=== PATIENT | female | born 1945 | race Caucasian/White ===

== ENCOUNTER 2024-11-02 08:56 | Emergency (ER) | payer MEDICARE, SELFPAY ==
[2024-11-02] VITALS (7 sets, daily range): BP systolic 83–123; BP diastolic 58–81; PULSE 78–93; RESP 16–22; TEMP 36.5–37.1; O2SAT 92–97; BMI 32.9
--- NOTE | 2024-11-02 09:12 | EKG_ITS ---
[facility] Test Date: 2024-11-02 Pat Name: TOBIAS CANELA Department: Room: - Gender: Female [employer]: : 1945 Requested By: Manjit Ward Order Number: [id number] Reading MD: Manjit Ward Measurements Intervals [place] Rate: 77 P: 61 TN: 155 QRS: -18 QRSD: 93 T: 42 QT: 434 QTc: 492 Interpretive Statements ELECTRONIC ATRIAL PACEMAKER MODERATE VOLTAGE CRITERIA FOR LVH, CONSIDER NORMAL VARIANT [MEETS CRITERIA IN ONE OF: R(aVL), S(V1), R(V5), R(V5/V6)+S(V1)] ABNORMAL RHYTHM ECG No previous ECG available for comparison /store/S0/[id number]/ecg/[id number].pdf
--- NOTE | 2024-11-02 09:12 | PD.EDSYNC ---
ED Syncope RME/HPI General Chief Complaint: Syncope / Near Syncope Stated Complaint: SYNCOPE Time Seen by Provider: 11/02/24 09:10 Arrival date/time: 11/02/24 08:56 RME / HPI RME / HPI narrative: 79 year old female with history of postpolio syndrome, COPD, hypothyroidsim, hyperlipidemia, osteoporosis presents to the ED [facility] from [facility] for syncopal episode today. Per medics, patient was found unresponsive in wheelchair and noted to be hypotensive. En route to ED patients blood pressure remained stable. While in the ED patient complains of feeling tired. Patient additionally reports she is having 4-5 bowel movements a day which she reports is normal for her. Denies fevers, chills, chest pain, cough, shortness of breath, abdominal pain, n/v, or urinary symptoms. Related Data Previous Rx's ?Medication ?Instructions ?Recorded levofloxacin 500 mg tablet 500 mg PO QDAY uti #7 tabs 11/02/24 Allergies Allergy/AdvReac Type Severity Reaction Status Date / Time acetaminophen [From Ultracet] Allergy Verified 04/14/24 12:02 bupropion [From Wellbutrin] Allergy Verified 04/14/24 12:02 celecoxib [From Celebrex] Allergy Verified 04/14/24 12:02 cephalexin Allergy Verified 04/14/24 12:02 doxycycline Allergy Verified 04/14/24 12:02 fexofenadine [From Yesenia] Allergy Verified 04/14/24 12:02 gabapentin [From Neurontin] Allergy Verified 04/14/24 12:02 gemfibrozil Allergy Verified 04/14/24 12:02 lactose Allergy Verified 04/14/24 12:04 methadone Allergy Verified 04/14/24 12:02 methocarbamol Allergy Verified 04/14/24 12:02 Penicillins Allergy Verified 04/14/24 12:02 rofecoxib [From Vioxx] Allergy Verified 04/14/24 12:02 sertraline [From Zoloft] Allergy Verified 04/14/24 12:02 sumatriptan [From Imitrex] Allergy Verified 04/14/24 12:02 tramadol Allergy Verified 04/14/24 12:02 valdecoxib [From Bextra] Allergy Verified 04/14/24 12:02 Review of Systems Review of Systems Narrative Review of Systems: Gen: No fever, no chills, no weight loss, +fatigue EYES: No discharge, no visual changes, no pain HEENT: No ear pain, no congestion, no sore throat PULM: no shortness of breath, no cough, no congestion CV: No chest pain, no dyspnea on exertion, no palpitations, no chest tightness GI: No nausea, no vomiting, +4-5 bowel movements/day, no pain, no constipation : No frequency, no urgency,? no dysuria Musc/skel: No joint pain, no back pain Skin: No rash, no ecchymosis, no lesions Neuro: No weakness, no headache Past Medical History Past Medical History CARDIAC: Positive Cardiac Disorders and Hypercholesterolemia RESPIRATORY: Positive Chronic Obstructive Pulmonary Disease (COPD) MUSCULOSKELETAL: Positive Osteoporosis and Poliovirus ENDOCRINE: Positive Hypothyroidism PSYCHO/SOCIAL: Positive Depression Social History SMOKING STATUS: Never smoker ED Exam Narrative Physical exam: GENERAL APPEARANCE: Lethargic, fatigued, nontoxic appearing HEENT: NC, AT. Dry MM. EOMI, clear conjunctiva, oropharynx clear. NECK: Supple without lymphadenopathy. No stiffness or restricted ROM. HEART: Normal rate and regular rhythm, normal S1/S1, no m/r/g LUNGS: CTAB, moving air well. No crackles or wheezes are heard. ABDOMEN: Soft, nontender, nondistended with good bowel sounds heard. BACK: No midline C/T/L spine pain or deformity, No CVAT, no obvious deformity. EXTREMITIES: Without cyanosis, clubbing or edema. MUSCULOSKELETAL: FROM of all major joints, no chest tenderness NEUROLOGICAL: Grossly nonfocal. Lethargic, fatigued, moving all 4 extremities. CN not formally tested but appear grossly intact. Skin: Warm and dry without any rash. Course Quality Measures none Orders Category Date Time Status Bedside COVID-19 Antigen Test NOW Care 11/02/24 09:12 Active Bedside Influenza A&B Antigen Test NOW Care 11/02/24 09:12 Completed EKG (ED ONLY) *Do not use* NOW Care 11/02/24 09:12 Completed In and Out Catheter X1 Care 11/02/24 09:[address] chest abdomen pelvis wo Stat Exams 11/02/24 12:01 Completed EKG (ED Only) Stat Exams 11/02/24 09:12 Draft XR chest 1V Stat Exams 11/02/24 09:12 Completed CBC Stat Lab 11/02/24 09:42 Completed CMP [Comprehensive Metabolic Panel] Stat Lab 11/02/24 09:42 Completed Lactate (Lactic Acid) Stat Lab 11/02/24 09:42 Completed Procalcitonin Stat Lab 11/02/24 09:42 Completed RSV [Respiratory Syncytial Virus Ag] Stat Lab 11/02/24 09:13 Ordered Troponin I Stat Lab 11/02/24 09:42 Completed Troponin I Stat Lab 11/02/24 12:46 Completed Urinalysis Stat Lab 11/02/24 12:10 Completed Levofloxacin/D5w 500 mg Ivpb [Levaquin Ivpb] Med 11/02/24 13:02 Discontinued 500 mg in 100 ml IV X1 Sodium Chloride 0.9% 1000 ml [Ns] 1,000 ml Med 11/02/24 09:12 Discontinued IV 999 mls/hr Sodium Chloride 0.9% 500 ml [Ns] 500 ml Med 11/02/24 10:29 Discontinued IV 999 mls/hr Vital Signs Vital signs: Vital Signs Pulse Rate 81 11/02/24 09:12 Respiratory Rate 21 H 11/02/24 09:12 Blood Pressure 83/58 L 11/02/24 09:12 Pulse Oximetry (%) 96 11/02/24 09:12 Oxygen Delivery Method Room Air 11/02/24 09:12 Pulse ox is 96% on room air which is adequate. Syncope MDM Narrative MDM Narrative:: Ms. Palmer is a clinically nontoxic-appearing female who presents to the emergency department with weakness and syncope with exam consistent with significantly dry mucous membranes and dehydration. She was hydrated in the emergency department with improvement of blood pressure and symptomatically improved to baseline. Laboratory testing send shows a mild ELEAZAR with creatinine 2.0 which which should respond well to the fluids she was given here in the emergency department. Remainder laboratory testing was unremarkable. Patient states she has a chronic history of low blood pressure, and she did in fact present initially with low blood pressure, however it did seem to normalize with IV fluids. I am not certain she truly lives with chronically low blood pressure as it is normal now. For possible full sources of infection given her mild kidney injury, noncontrast CT scan of the chest was done which shows no acute findings on my interpretation but does note a mild left pleural effusion with some compressive atelectasis. Patient does not have any shortness of breath or cough noted here. I reviewed the radiology interpretation and feel this is not consistent with a pneumonia. She does have a UTI which could be triggering her dehydration, and therefore was started on antibiotics, Levaquin which should also cover pulmonary functions as well. Otherwise for syncope, she had no significant events on telemetry here in the emergency department, she remained paced. EKG shows no signs of acute ischemia and troponin x 2 was negative. As she is clinically well-appearing, stable vital signs, and overall negative workup she is appropriate for outpatient treatment and follow-up. Nneka Edwards am scribing for and in the presence of Dr. Ward. Patient data External records reviewed:: [facility] previous records (I reviewed ED visit on 04/14/2024), EMS form and Alf records (I reviewed [place] txfer ppw from [facility]. I reviewed POLST, pmhx, and medication list. ) Clinical information provided by:: patient and EMS Social determinants that could affect healthcare access:: housing ([place] resident ) Patient has the following chronic illnesses:: postpolio syndrome, COPD, hypothyroidsim, hyperlipidemia, osteoporosis How is presenting disease/condition affected by chronic disease/condition?: exacerbated by Evaluation data The following diagnostics were reviewed and interpreted by me:: lab results, radiology exam(s) and EKG tracing(s) (Atrially paced, rate 77, no acute ST or T-wave changes, no STEMI.) Lab and/or radiology exams considered but not ordered:: None Interpretation Summary: Ordering Physician: Manjit Ward MD Date of Service: 11/02/24 Procedure(s): XR chest 1V Accession Number(s): [id number] cc: Manjit Ward MD; Milad Randall MD; NO PRIMARY/FAMILY,PHYSICIAN~ Examination: AP chest single view Technique one AP portable semiupright chest single view Exam date and time: November 02, 2024 0918 hours INDICATIONS: Shortness of breath today FINDINGS: Mild opacity left base obscuring detail left hemidiaphragm Normal heart size Mild vascular congestion Right internal jugular central line tip right atrium Cardiac leads satisfactory position IMPRESSION: Left base pneumonia Dictated By:Milad Randall MD Signed By:<Electronically signed by Milad Randall MD in OV>11/02/24 0938 Ordering Physician: Manjit Ward MD Date of Service: 11/02/24 Procedure(s): CT chest abdomen pelvis wo Accession Number(s): [id number] cc: Manjit Ward MD; Milad Randall MD; NO PRIMARY/FAMILY,PHYSICIAN~ Examination: CT chest, without intravenous contrast. CT abdomen, without intravenous contrast. CT pelvis, without intravenous contrast. 2-D sagittal and coronal reconstructions. 3-D reconstructions. Date and time of exam:November 02, 2024 1220 hours INDICATIONS: Diagnosis acute renal insufficiency COMPARISON: April 14, 2024 CTDI vol (mgy) 8.1 DLP (MGycm)593 Technique: Multiple CT images, 3.0 mm slice thickness, obtained chest, abdomen, pelvis, with the high-resolution 64 slice scanner.. Sagittal and coronal 2-D reconstructions are obtained. 3-D reconstructions Low dose protocols were performed. One or more of the following dose reduction techniques were used; automated exposure control, adjustment of the mA and/or KV according to patient size, use of iterative reconstruction technique. Findings: No thoracic aortic aneurysmal dilatation Pulmonary artery segments are not enlarged No paratracheal tracheobronchial or bronchopulmonary adenopathy Prominent vascular congestion with mild left minimal right pleural fluid Left base pneumonia No focal liver or splenic lesion Absent gallbladder No pancreatic mass Significant bilateral renal parenchymal scar formation, no hydronephrosis Aorta normal size No bowel obstruction No pericecal inflammatory change Septated left pelvic mass, which may represent a cyst, 5 cm No bladder mass Detail in the pelvis is reduced secondary to the patient's left hip hemiarthroplasty Severe osteopenia IMPRESSION: Left base pneumonia Significant bilateral renal parenchymal scar formation, no hydronephrosis Recommend pelvic sonography to assess 5 cm left pelvic mass Dictated By:Milad Randall MD Signed By:<Electronically signed by Milad Randall MD in OV>11/02/24 3209 Medications / Prescriptions Medications or Prescriptions considered but not ordered:: None Medication administrations:: Medication Administration History Discontinued Medications Sodium Chloride (Ns) 1,000 mls @ 999 mls/hr IV .Q1H1M ONE Stop: 11/02/24 10:12 Last Infusion: 11/02/24 13:12 Dose: Infused Documented By: Admin: 11/02/24 10:42 Dose: 999 mls/hr Documented By: Sodium Chloride (Ns) 500 mls @ 999 mls/hr IV .Q31M ONE Stop: 11/02/24 10:59 Last Infusion: 11/02/24 11:38 Dose: Infused Documented By: Admin: 11/02/24 10:46 Dose: 999 mls/hr Documented By: Levofloxacin/Dextrose (Levaquin Ivpb) 500 mg in 100 mls @ 100 mls/hr IV X1 ONE Stop: 11/02/24 14:01 Last Infusion: 11/02/24 15:11 Dose: Infused Documented By: Admin: 11/02/24 13:50 Dose: 100 mls/hr Documented By: See above Consultations Consultation(s) initiated? (list below): No Diagnosis Syncope Differential Diagnosis: syncope due to orthostatic hypotension, vasovagal syncope and dehydration Most likely diagnosis given after review of the tests above:: Dehydration Acute UTI Vasovagal syncope Admission Indicated Admission indicated?: not indicated Admission Request Was there a request for admission?: No Disposition Plan Disposition Plan: Discharge Discharge Attestation Discharge Attestation: The patient and all family members were given an opportunity to ask questions and understood the discharge instructions. Discharge instructions specifically effects, indications for sooner follow up or return to the emergency department, and the expected course of current diagnosis. Patient condition: Stable Discharge Plan Plan Patient Disposition: Xfer Skilled Nsg Fac (SNF) Prescriptions/Referrals Prescriptions/Med Rec: New levofloxacin 500 mg tablet 500 mg PO QDAY Qty: 7 0RF Referrals: No Primary/Family,Physician [Primary Care Provider] - In 1 week Problem List Clinical Impression: Dehydration, Acute UTI, Vasovagal syncope Patient/Caregiver Discharge Instructions Education Materials: ED Dehydration (Adult), ED CYSTITIS Female Adult Additional Instructions: Encouraged extra oral fluids (water) for the next 48 hours. Please take all antibiotics as prescribed. Follow-up with the facility medical provider in 24 hours for recheck. You can return to the emergency department sooner symptoms worsen or if you notice any new, concerning issues. Print Language: Iraqi Stand Alone Forms: Arianna Award Info., Patient Portal Info Letter
[2024-11-02 09:50] LABS: Lactate (Lactic Acid) 0.9 mMol/L (0.4-2.0)
[2024-11-02 09:51] LABS: Basophils % (Auto) 0 % (0-2.5); Eosinophils % (Auto) 0 % (0-10); Hematocrit 39.9 % (36.0-46.0); Immature Granulocytes % (Auto) 0 % (0-0); Immature Granulocytes Auto 0.02 Thou/mm3 (0.00-0.00); Lymphocytes # (Auto) 0.9 Thou/mm3 (1.0-4.8); Lymphocytes % (Auto) 14 % (10-50); Mean Corpuscular HGB Conc 32.6 g/dl (31.0-37.0); Mean Corpuscular Hemoglobin 31.5 pg (25.0-35.0); Mean Corpuscular Volume 97 fL (80-100); Monocytes # (Auto) 0.5 Thou/mm3 (0.0-0.8); Monocytes % (Auto) 7 % (0-12); Neutrophils # (Auto) 5.2 Thou/mm3 (1.8-7.7); Neutrophils % (Auto) 79 % (37-80); Nucleated Red Blood Cell % 0 /100 WBC (0); Platelet Count 202 Thou/mm3 (140-440); RDW Standard Deviation 51.4 fL (36.4-46.3); Red Blood Count 4.13 Miln/mm3 (4.00-5.20); White Blood Count 6.7 Thou/mm3 (3.6-11.0)
[2024-11-02 10:22] LABS: Alanine Aminotransferase 66 U/L (10-49); Albumin, Serum 3.9 gm/dL (3.4-4.8); Albumin/Globulin Ratio 1.9 (1.2-2.2); Alkaline Phosphatase 96 U/L (46-116); Anion Gap 10 (7-16); Aspartate Amino Transferase 24 U/L (0-34); BUN/Creatinine Ratio 13 Ratio (12-20); Bilirubin,Total 0.4 mg/dL (0.3-1.2); Blood Urea Nitrogen 25 mg/dL (9-23); Calcium 8.6 mg/dL (8.3-10.6); Calcium (Corrected) 8.7 mg/dL (8.5-10.1); Carbon Dioxide 24.9 mMol/L (20.0-31.0); Chloride 103 mMol/L (98-107); Globulin 2.1 gm/dL (2.3-3.5); Glucose 119 mg/dL (74-106); Osmolality,Calculated 281 (275-295); Potassium 4.2 mMol/L (3.4-5.1); Procalcitonin 0.13 ng/ml (0.0-0.49); Sodium 138 mMol/L (136-145); Troponin I < 0.020 ng/mL (0.0-0.045); eGFR 25 See Note
[2024-11-02] MEDS: SODIUM CHLORIDE 0.9% 1000 ML 1,000 ML 999 ML IV (10:42)
[2024-11-02] MEDS: SODIUM CHLORIDE 0.9% 500 ML 500 ML 999 ML IV (10:46)
--- NOTE | 2024-11-02 12:01 | XR_ITS ---
Examination: CT chest, without intravenous contrast. CT abdomen, without intravenous contrast. CT pelvis, without intravenous contrast. 2-D sagittal and coronal reconstructions. 3-D reconstructions. Date and time of exam:November 02, 2024 1220 hours INDICATIONS: Diagnosis acute renal insufficiency COMPARISON: April 14, 2024 CTDI vol (mgy) 8.1 DLP (MGycm)593 Technique: Multiple CT images, 3.0 mm slice thickness, obtained chest, abdomen, pelvis, with the high-resolution 64 slice scanner.. Sagittal and coronal 2-D reconstructions are obtained. 3-D reconstructions Low dose protocols were performed. One or more of the following dose reduction techniques were used; automated exposure control, adjustment of the mA and/or KV according to patient size, use of iterative reconstruction technique. Findings: No thoracic aortic aneurysmal dilatation Pulmonary artery segments are not enlarged No paratracheal tracheobronchial or bronchopulmonary adenopathy Prominent vascular congestion with mild left minimal right pleural fluid Left base pneumonia No focal liver or splenic lesion Absent gallbladder No pancreatic mass Significant bilateral renal parenchymal scar formation, no hydronephrosis Aorta normal size No bowel obstruction No pericecal inflammatory change Septated left pelvic mass, which may represent a cyst, 5 cm No bladder mass Detail in the pelvis is reduced secondary to the patient's left hip hemiarthroplasty Severe osteopenia IMPRESSION: Left base pneumonia Significant bilateral renal parenchymal scar formation, no hydronephrosis Recommend pelvic sonography to assess 5 cm left pelvic mass
[2024-11-02 12:16] LABS: Collection Type, Urine Catheter; RBC,Urine 0 /hpf (0-3)
[2024-11-02 12:29] LABS: Amorphous Crystals,Urine Present (Absent); Bacteria,Urine 4+; Bilirubin,Urine Negative (Negative); Blood,Urine Negative (Negative); Clarity,Urine Turbid (Clear/Hazy); Color,Urine Yellow (Lt Yel-Yel); Glucose, Urine Negative (Negative); Hyaline Casts,Urine < 1 /hpf (0-1); Ketones,Urine Negative (Negative); Leukocyte Esterase,Urine Positive (Negative); Nitrite,Urine Negative (Negative); Protein,Urine 1+ (Neg - Trace); Specific Gravity,Urine 1.025 (1.001-1.035); Squamous Epithelial Cell,Urine 1 /hpf (0-5); WBC,Urine 2 /hpf (0-5)
[2024-11-02 13:26] LABS: Troponin I < 0.020 ng/mL (0.0-0.045)
[2024-11-02] MEDS: LEVOFLOXACIN/D5W 500 MG IVPB 500 MG/100 ML BAG 100 MG IV (13:50)
--- NOTE | 2024-11-02 15:59 | PC.CC ---
[employer] CC engaged by bedside RN to arrange transport for pt back to [facility]. 1535-Call to [employer]. Pt is usually transported via wheel chair transport, but does not have her wheel chair in ED at this time. [facility] transport requested. Reference # [id number]. PCS and face sheet uploaded to [employer], pending transport ETA.
== END 2024-11-02 19:25 | disposition skilled nursing facility (03) ==
PROVIDERS: Emergency Provider Emergency Medicine
DX: N39.0 Urinary tract infection, site not specified (principal); E86.0 Dehydration; J44.0 Chronic obstructive pulmonary disease with (acute) lower respiratory infection; J18.9 Pneumonia, unspecified organism; R94.31 Abnormal electrocardiogram [ECG] [EKG]; E78.00 Pure hypercholesterolemia, unspecified
CPT/HCPCS: 51701; 36415; 71045; 71250; 74176; 80053; 81001; 83605; 84145; 84484; 85025; 87400; 87634; 87811; 93005; 96360; 96361; 96365; 99284; J1956; J7030; J7040